=== PATIENT | female | born 1955 | race African-American/Black ===

== ENCOUNTER 2019-08-05 15:02 | Emergency (ER) | payer OTHER, MEDICAID ==
[~2019-08-05] VITALS: Ht 165.1 cm; Wt 108.9 kg
[2019-08-05] MEDS: Albuterol/Ipratropium 3ml neb HHN SCH ×3 (16:27→17:00)
--- NOTE | 2019-08-05 16:38 | Emergency Room Report ---
History of Present Illness General Chief Complaint: Upper Respiratory Illness Source: Patient Present Illness HPI 64-year-old female with no symptom past medical history here complaining of 1/2 weeks of cough and congestion. Reports phlegm production, and mild wheezing. Denies fever and chills, sore throat, photophobia, neck stiffness, abdominal pain, nausea vomiting. Has not taken medication for symptom relief other than [id number] decongestants. Patient sitting comfortably with stable vital signs reports that she recently started taking blood pressure medication however has been taking it for several months and has not noticed any side effects. Denies recent travel or sick contact. No wheezing is noted upon examination however distance lung sounds noted. Denies chest pain, shortness of breath, palpitation, no other associated symptoms. Allergies: Coded Allergies: No Known Allergies (Unverified , 08/05/19) Patient History Past Medical History: see triage record Past Surgical History: unable to obtain Pertinent Family History: none Now: No Immunizations: UTD Reviewed Nursing Documentation: PMH: Agreed; PSxH: Agreed Nursing Documentation-PMH Past Medical History: No History, Except For Hx Hypertension: Yes Review of Systems All Other Systems: negative except mentioned in HPI Physical Exam Vital Signs Date Time Temp Pulse Resp B/P (MAP) Pulse Ox O2 Delivery O2 Flow Rate FiO2 08/05/19 15:25 98.4 96 18 156/90 (112) 97 Room Air 08/05/19 16:23 21 Sp02 EP Interpretation: reviewed, normal General Appearance: no apparent distress, alert, GCS 15, non-toxic Head: normocephalic, atraumatic Eyes: bilateral eye normal inspection, bilateral eye PERRL ENT: hearing grossly normal, normal pharynx, no angioedema, normal voice Neck: full range of motion, supple, supple/symm/no masses Respiratory: chest non-tender, lungs clear, normal breath sounds, no rhonchi, no respiratory distress, no retraction, no accessory muscle use, no wheezing, speaking full sentences, other - Distant lung sounds Cardiovascular #1: regular rate, rhythm, no edema, no murmur Gastrointestinal: normal bowel sounds, non tender, soft Genitourinary: no CVA tenderness Musculoskeletal: back normal, gait/station normal, normal range of motion, non- tender, no calf tenderness Neurologic: alert, oriented x3, responsive, motor strength/tone normal, sensory intact, speech normal Psychiatric: judgement/insight normal, memory normal, mood/affect normal, no suicidal/homicidal ideation Skin: no rash Lymphatic: no adenopathy Medical Decision Making PA Attestation All my diagnosis and treatment plans were reviewed ad discussed with my supervising physician Dr. Kumar Diagnostic Impression: Primary Impression: Upper respiratory infection ER Course 64-year-old female with no symptom past medical history here complaining of 1/2 weeks of cough and congestion. Reports phlegm production, and mild wheezing. Denies fever and chills, sore throat, photophobia, neck stiffness, abdominal pain, nausea vomiting. Has not taken medication for symptom relief other than [id number] decongestants. Patient sitting comfortably with stable vital signs reports that she recently started taking blood pressure medication however has been taking it for several months and has not noticed any side effects. Denies recent travel or sick contact. No wheezing is noted upon examination however distance lung sounds noted. Denies chest pain, shortness of breath, palpitation, no other associated symptoms. Ddx considered but are not limited to: strep pharyngitis, URI, tonsillitis, peritonsillar abscess, influneza Vital signs: are WNL, pt. is afebrile H&PE are most consistent with: URI presumed bacterial due to duration as well as patient's age ORDERS: Chest x-ray Phenergan, albuterol inhaler, azithromycin ED INTERVENTIONS: DuoNeb DISCHARGE: At this time pt. is stable for d/c to home. Will provide printed patient care instructions, and any necessary prescriptions. Care plan and follow up instructions have been discussed with the patient prior to discharge. Patient to follow-up with her primary care provider, if worsening symptoms return to the emergency room. At this time no signs of obvious pneumonia noted Chest X-Ray Diagnostic Results Chest X-Ray Diagnostic Results : Chest X-Ray Ordered: Yes # of Views/Limited/Complete: 1 View Indication: Other EP Interpretation: Yes LEON Xray: Interpretation reviewed, by supervising MD Interpretation: no consolidation, no effusion, no pneumothorax Impression: No acute disease Electronically Signed by: Germán Dockery PA-C Last Vital Signs Date Time Temp Pulse Resp B/P (MAP) Pulse Ox O2 Delivery O2 Flow Rate FiO2 08/05/19 16:25 86 20 99 Room Air 21 85 20 98 10/28/19 15:25 98.4 156/90 (112) Disposition: HOME, SELF-CARE Condition: Stable Scripts Albuterol Sulfate (VENTOLIN HFA) 18 Gm Hfa.aer.ad 2 PUFFS INH EVERY 6 HOURS, #18 GM 0 Refills Prov: Germán Navarro 08/05/19 Promethazine Hcl (PROMETHAZINE HCL*) 6.25 Mg/5 Ml Syrup 5 ML ORAL Q6H, #120 ML 0 Refills Prov: Germán Navarro 08/05/19 Azithromycin* (ZITHROMAX*) 250 Mg Tablet 250 MG ORAL DAILY, #6 TAB 0 Refills Take two tables once daily for 1 day, then one tablet once daily for 4 days. Prov: Germán Navarro 08/05/19 Patient Instructions: Upper Respiratory Infection, Adult Additional Instructions: Take medication as ordered, follow with your primary care provider in 24 hours. If worsening symptoms return to the emergency room. Germán Navarro Aug 05, 2019 16:38
[2019-08-05] MEDS ORDERED: VENTOLIN HFA18 GM INH (16:42)
[2019-08-05] MEDS ORDERED: ZITHROMAX250 MG ORAL (16:42)
[2019-08-05] MEDS ORDERED: PROMETHAZI6.25 MG/1 ORAL (16:42)
[2019-08-05 16:43] VITALS: BP 156/90
--- NOTE | 2019-08-05 16:44 | NUR ---
ED Nurse Note:pt. came with URI, received breathing treatment
--- NOTE | 2019-08-05 16:59 | Diagnostic Imaging Report ---
Indication: Cough Comparison: 07/28/2010 A single view chest radiograph was obtained. Findings: No definite infiltrate or pulmonary vascular congestion identified. The heart is enlarged. The aorta is mildly enlarged consistent with atherosclerotic vascular disease. The bones are osteopenic. Impression: No acute disease
--- NOTE | 2019-08-05 17:00 | NUR ---
ER DISCHARGE NOTE: Patient is cleared to be discharged per ERMD, pt is aox4, on room air, with stable vital signs. pt was given dc and prescription instructions, pt was able to verbalize understanding, pt is able to ambulate with steady gait. pt took all belongings.
[2019-08-05 17:05] VITALS: BP 156/90
== END 2019-08-05 17:00 | disposition home or self-care (01) ==
LOC: EMR 16:40
DX: J06.9 Acute upper respiratory infection, unspecified (principal); I10 Essential (primary) hypertension; R05 Cough
CPT/HCPCS: 71045; 94640; 94664; 99284; J7620